=== PATIENT | female | born 1985 | race Caucasian/White ===

== ENCOUNTER 2019-11-18 15:27 | Emergency (ER) | payer BC ==
[2019-11-18] MEDS ORDERED: SODIUM CHLORIDE 0.9% 500 ML 500 ML IV STA (15:35)
[2019-11-18 15:43] VITALS: TEMP 97.5
[2019-11-18 15:46] LABS: Glucose,Whole Blood 128 mg/dL (75-99)
--- NOTE | 2019-11-18 15:49 | ED ---
General Adult HPI - General Chief complaint: Seizure Stated complaint: seizure Time Seen by Provider: 11/18/19 15:28 Source: family, RN notes reviewed Mode of arrival: EMS Limitations: language barrier, altered mental status - History of Present Illness Initial comments: 34-year-old female presenting with suspected new onset seizure. History is limited and isolated to EMS report. Patient recently moved to this area, has had drug issues in the past. She's currently in treatment and on daily methadone. Patient was suspected of ingesting 2 doses of methadone simultaneously. She had a witnessed tonic-clonic seizure at home lasting approximately 2 minutes followed by postictal period. Patient was extremely combative and agitated upon EMS arrival. She required Versed for sedation for transportation. She had been moving all extremities according to EMS. Further history will be obtained from patient's family when available. - Related Data Allergies Allergy/AdvReac Type Severity Reaction Status Date / Time Penicillins Allergy Unknown Verified 11/18/19 15:43 Review of Systems ROS Statement: Those systems with pertinent positive or pertinent negative responses have been documented in the HPI. ROS Other: All systems not noted in ROS Statement are negative. Past Medical History Past Medical History: Hypertension History of Any Multi-Drug Resistant Organisms: None Reported Past Surgical History: Hysterectomy Past Psychological History: Depression, Panic Disorder, PTSD Smoking Status: Current every day smoker Past Alcohol Use History: None Reported Past Drug Use History: Methamphetamine General Exam Limitations: language barrier, altered mental status General appearance: lethargic Head exam: Present: atraumatic, normocephalic Eye exam: Present: PERRL (Pupils are 6 mm bilaterally and reactive). Absent: nystagmus ENT exam: Present: mucous membranes dry Neck exam: Present: normal inspection. Absent: tenderness, meningismus Respiratory exam: Present: normal lung sounds bilaterally. Absent: respiratory distress Cardiovascular Exam: Present: regular rate, normal rhythm GI/Abdominal exam: Present: soft. Absent: distended, tenderness, guarding, rebound Extremities exam: Present: normal capillary refill Neurological exam: Present: motor sensory deficit (Patient moving all extremities symmetrically, localizes to pain.) Skin exam: Present: warm, dry, intact. Absent: cyanosis, diaphoretic Course Vital Signs 11/18/19 11/18/19 15:36 16:46 Temperature 97.5 F L Pulse Rate 99 94 Respiratory 18 16 Rate Blood Pressure 134/101 121/85 O2 Sat by Pulse 90 L 99 Oximetry - Reevaluation(s) Reevaluation #1: 11/18/19 17:07 Patient is responsive to verbal stimulus, she has stable vitals, she is maintaining her airway. EKG Findings - EKG Comments: EKG Findings:: EKG: Sinus tachycardia, rightward axis, rate of 106, IN interval 176, QRS duration 84, QTC 464 Medical Decision Making - Medical Decision Making 34 yo female with new-onset seizure. Patient has history of polysubstance ab use, currently on methadone and in rehab. She had 2 episodes of tonic-clonic seizure which was witnessed followed by postictal period. She received Versed by EMS and additional doses of Ativan in the emergency department. Head CT was performed this is negative for intracranial hemorrhage or mass effect. She has a normal CBC. She had a mild transaminitis, and lactic acidosis of 3.6 consistent with seizure. She receives IV hydration, she is initiated on Keppra. She will require observation for evaluation of neuro status after prolonged postictal period. She will require neurology consultation, likely EEG. This institution does not have neurology coverage at this time, she will be [facility]ferred to [facility] for [facility] evaluation, she has been accepted by the ER physician Dr. Woods. - Lab Data Result diagrams: 11/18/19 15:40 11/18/19 15:40 Lab Results 11/18/19 11/18/19 11/18/19 Range/Units 15:40 15:40 15:40 WBC 5.9 (3.8-10.6) k/uL RBC 3.58 L (3.80-5.40) m/uL Hgb 11.6 (11.4-16.0) gm/dL Hct 34.1 (34.0-46.0) % MCV 95.4 (80.0-100.0) fL MCH 32.4 (25.0-35.0) pg MCHC 34.0 (31.0-37.0) g/dL RDW 14.0 (11.5-15.5) % Plt Count 165 (150-450) k/uL Sodium 139 (137-145) mmol/L Potassium 3.7 (3.5-5.1) mmol/L Chloride 105 (98-107) mmol/L Carbon Dioxide 25 (22-30) mmol/L Anion Gap 9 mmol/L BUN 12 (7-17) mg/dL Creatinine 0.80 (0.52-1.04) mg/dL Est GFR (CKD-EPI)AfAm >90 (>60 ml/min/1.73 sqM) Est GFR (CKD-EPI)NonAf >90 (>60 ml/min/1.73 sqM) Glucose 115 H (74-99) mg/dL POC Glucose (mg/dL) (75-99) mg/dL POC Glu Vocational Placement Specialist ID Plasma Lactic Acid [place] 3.6 H* (0.7-2.0) mmol/L Calcium 9.3 (8.4-10.2) mg/dL Magnesium 2.0 (1.6-2.3) mg/dL Total Bilirubin 0.8 (0.2-1.3) mg/dL AST 62 H (14-36) U/L ALT 65 H (4-34) U/L Alkaline Phosphatase 112 (38-126) U/L Total Protein 7.3 (6.3-8.2) g/dL Albumin 4.0 (3.5-5.0) g/dL Urine Color Urine Appearance (Clear) Urine pH (5.0-8.0) Ur Specific [place] (1.001-1.035) Urine Protein (Negative) Urine Glucose (UA) (Negative) Urine Ketones (Negative) Urine Blood (Negative) Urine Nitrite (Negative) Urine Bilirubin (Negative) Urine Urobilinogen (<2.0) mg/dL Ur Leukocyte Esterase (Negative) Urine HCG, Qual (Not Detectd) Salicylates <1.0 mg/dL Urine Opiates Screen (NotDetected) Ur Oxycodone Screen (NotDetected) Urine Methadone Screen (NotDetected) Ur Propoxyphene Screen (NotDetected) Acetaminophen <10.0 ug/mL Ur Barbiturates Screen (NotDetected) U Tricyclic Antidepress (NotDetected) Ur Phencyclidine Scrn (NotDetected) Ur Amphetamines Screen (NotDetected) U Methamphetamines Scrn (NotDetected) U Benzodiazepines Scrn (NotDetected) Urine Cocaine Screen (NotDetected) U Marijuana (THC) Screen (NotDetected) Serum Alcohol <10 mg/dL 11/18/19 11/18/19 11/18/19 Range/Units 15:45 16:10 16:10 WBC (3.8-10.6) k/uL RBC (3.80-5.40) m/uL Hgb (11.4-16.0) gm/dL Hct (34.0-46.0) % MCV (80.0-100.0) fL MCH (25.0-35.0) pg MCHC (31.0-37.0) g/dL RDW (11.5-15.5) % Plt Count (150-450) k/uL Sodium (137-145) mmol/L Potassium (3.5-5.1) mmol/L Chloride (98-107) mmol/L Carbon Dioxide (22-30) mmol/L Anion Gap mmol/L BUN (7-17) mg/dL Creatinine (0.52-1.04) mg/dL Est GFR (CKD-EPI)AfAm (>60 ml/min/1.73 sqM) Est GFR (CKD-EPI)NonAf (>60 ml/min/1.73 sqM) Glucose (74-99) mg/dL POC Glucose (mg/dL) 128 H (75-99) mg/dL POC Glu Vocational Placement Specialist Jane Romo Plasma Lactic Acid [place] (0.7-2.0) mmol/L Calcium (8.4-10.2) mg/dL Magnesium (1.6-2.3) mg/dL Total Bilirubin (0.2-1.3) mg/dL AST (14-36) U/L ALT (4-34) U/L Alkaline Phosphatase (38-126) U/L Total Protein (6.3-8.2) g/dL Albumin (3.5-5.0) g/dL Urine Color Yellow Urine Appearance Clear (Clear) Urine pH 5.5 (5.0-8.0) Ur Specific [place] 1.016 (1.001-1.035) Urine Protein Negative (Negative) Urine Glucose (UA) Negative (Negative) Urine Ketones Trace H (Negative) Urine Blood Negative (Negative) Urine Nitrite Negative (Negative) Urine Bilirubin Negative (Negative) Urine Urobilinogen <2.0 (<2.0) mg/dL Ur Leukocyte Esterase Negative (Negative) Urine HCG, Qual Not Detected (Not Detectd) Salicylates mg/dL Urine Opiates Screen Not Detected (NotDetected) Ur Oxycodone Screen Not Detected (NotDetected) Urine Methadone Screen Detected H (NotDetected) Ur Propoxyphene Screen Not Detected (NotDetected) Acetaminophen ug/mL Ur Barbiturates Screen Not Detected (NotDetected) U Tricyclic Antidepress Not Detected (NotDetected) Ur Phencyclidine Scrn Not Detected (NotDetected) Ur Amphetamines Screen Not Detected (NotDetected) U Methamphetamines Scrn Not Detected (NotDetected) U Benzodiazepines Scrn Not Detected (NotDetected) Urine Cocaine Screen Not Detected (NotDetected) U Marijuana (THC) Screen Not Detected (NotDetected) Serum Alcohol mg/dL Critical Care Time Critical Care Time: Yes Total Critical Care Time: 35 Disposition Clinical Impression: New onset seizure Disposition: OTHER INSTITUTION NOT DEFINED Condition: Stable Is patient prescribed a controlled substance at d/c from ED?: No Referrals: None,Stated [Primary Care Provider] - 1-2 days Time of Disposition: 17:07 - Out of Hospital Transfer - Req. Specs Out of Hospital Transfer - Requested Specifics: Other Emergency Center (Transferred to [facility])
[2019-11-18 15:56] LABS: HCT 34.1 % (34.0-46.0); HGB 11.6 gm/dL (11.4-16.0); MCH 32.4 pg (25.0-35.0); MCV 95.4 fL (80.0-100.0); Platelet Count 165 k/uL (150-450); RBC 3.58 m/uL (3.80-5.40); WBC 5.9 k/uL (3.8-10.6)
[2019-11-18 16:08] LABS: ALT 65 U/L (4-34); AST 62 U/L (14-36); Acetaminophen <10.0 ug/mL; African American GFR (CKD) >90 (>60 ml/min/1.73 sqM); Alcohol <10 mg/dL; Alkaline Phosphatase 112 U/L (38-126); Anion Gap 9 mmol/L; Blood Urea Nitrogen 12 mg/dL (7-17); Calcium 9.3 mg/dL (8.4-10.2); Carbon Dioxide 25 mmol/L (22-30); Chloride 105 mmol/L (98-107); Glucose 115 mg/dL (74-99); Non-African American GFR(CKD) >90 (>60 ml/min/1.73 sqM); Potassium 3.7 mmol/L (3.5-5.1); Salicylate <1.0 mg/dL; Sodium 139 mmol/L (137-145); Total Bilirubin 0.8 mg/dL (0.2-1.3); Total Protein 7.3 g/dL (6.3-8.2)
[2019-11-18] MEDS ORDERED: LORazepam 2 MG/ML INJ IV STA ×2 (16:10→16:15)
[2019-11-18 16:21] LABS: Appearance,Urine Clear (Clear); Bilirubin,Urine Negative (Negative); Blood,Urine Negative (Negative); Color,Urine Yellow; Glucose,Urine (UA) Negative (Negative); Ketones,Urine Trace (Negative); Leukocyte Esterase,Urine Negative (Negative); Nitrite,Urine Negative (Negative); PH, Urine 5.5 (5.0-8.0); Protein,Urine Negative (Negative); Specific Gravity,Urine 1.016 (1.001-1.035); Urobilinogen,Urine <2.0 mg/dL (<2.0)
[2019-11-18 16:30] LABS: Amphetamine Screen,Urine Not Detected (NotDetected); Barbiturate Screen,Urine Not Detected (NotDetected); Benzodiazepines Screen,Urine Not Detected (NotDetected); Cocaine Screen,Urine Not Detected (NotDetected); Methadone Screen, Urine Detected (NotDetected); Opiate Screen,Urine Not Detected (NotDetected); Oxycodone Screen, Urine Not Detected (NotDetected); Phencyclidine Screen,Urine Not Detected (NotDetected); Tricyclic Antidepressant,Urine Not Detected (NotDetected); Urn Cannabinoid Scrn Not Detected (NotDetected)
[2019-11-18] MEDS ORDERED: SODIUM CHLORIDE 0.9% 1,000 ML IV SCH (16:30)
--- NOTE | 2019-11-18 16:31 | CT ---
EXAMINATION TYPE: CT brain wo con DATE OF EXAM: 11/18/2019 COMPARISON: None HISTORY: Seizure activity, possible overdose, combative, altered mental status. CT DLP: 1217.4 mGycm. Automated Exposure Control for Dose Reduction was Utilized. TECHNIQUE: CT scan of the head is performed without contrast. FINDINGS: There is no acute intracranial hemorrhage, mass effect, or midline shift identified. The ventricles and sulci are within normal limits in size. The globes are intact and the visualized sin uses are clear. IMPRESSION: No acute intracranial hemorrhage, mass effect, or midline shift is seen.
[2019-11-18 16:59] LABS: Band Neutrophils % 3 %; Eosinophils # (M) 0.41 k/uL (0-0.7); Lymphocytes # (M) 2.89 k/uL (1.0-4.8); Monocytes # (M) 0.41 k/uL (0-1.0); Neutrophils % (M) 34 %; Nucleated Red Blood Cells 0 /100 WBC (0-0); Total Cells Counted 100
[2019-11-18 17:00] LABS: Reactive Lymphocytes Present
[2019-11-18] MEDS ORDERED: levETIRAcetam IV 1,000 MG in SALINE 1 100ML.BAG IVPB STA (17:00)
[2019-11-18 18:07] VITALS: BP 128/91; PULSE 82; RESP 18
== END 2019-11-18 17:55 | disposition other institution (70) ==
LOC: EC 15:27
DX: R56.9 Unspecified convulsions (principal); F17.200 Nicotine dependence, unspecified, uncomplicated; Z88.0 Allergy status to penicillin
CPT/HCPCS: 36415; 93005; 80053; 83605; 83735; 85025; 81003; 81025; 80306; 83520; 80329; 80320; 70450; 99291; 96365; 96375; 96361 ×2; J2060; J1953

== ENCOUNTER 2020-12-23 05:22 | Emergency (ER) | payer BC, OTHER ==
[2020-12-23 05:34] VITALS: RESP 18
[2020-12-23] MEDS ORDERED: ONDANSETRON 4 MG/2 ML VIAL IVP STA ×2 (05:51→08:27)
[2020-12-23] MEDS ORDERED: MORPHINE SULFATE 4 MG/ML SYRINGE IV STA (05:51)
[2020-12-23 06:01] LABS: Appearance,Urine Turbid (Clear); Bacteria,Urine Many /hpf; Bilirubin,Urine Negative (Negative); Blood,Urine Large (Negative); Color,Urine Light Red; Glucose,Urine (UA) Negative (Negative); Ketones,Urine Negative (Negative); Leukocyte Esterase,Urine Large (Negative); Mucus,Urine Many /hpf; Nitrite,Urine Positive (Negative); Protein,Urine 2+ (Negative); RBC,Urine >182 /hpf (0-5); Specific Gravity,Urine 1.026 (1.001-1.035); Squamous Epithelial Cell,Urine 43 /hpf (0-4); Urobilinogen,Urine <2.0 mg/dL (<2.0); WBC,Urine >182 /hpf (0-5)
[2020-12-23] MEDS ORDERED: KETOROLAC 15 MG/ML 1 ML VIAL IVP STA (06:25)
--- NOTE | 2020-12-23 06:27 | ED ---
General Adult HPI - General Chief complaint: Abdominal Pain Stated complaint: Kidney Stone Time Seen by Provider: 12/23/20 06:20 Source: patient, RN notes reviewed Mode of arrival: wheelchair Limitations: no limitations - History of Present Illness Initial comments: Patient is a 35-year-old female significant past medical history for kidney stones, presented to the emergency room today with chief complaint of left sided flank pain that started yesterday. Doesn't do some nausea and vomiting and some symptoms of dysuria. She states the symptoms are consistent with kidney stones that she's had in the past. Patient denies any other complaints or symptoms currently at this time. Patient denies any recent fever, chills, shortness of breath, chest pain, headaches or visual changes, or any other complaints. - Related Data Home Medications Medication Instructions Recorded Confirmed Gabapentin 300 mg PO TID 12/23/20 12/23/20 Metoprolol(Unknown Dose) 3 tab PO DAILY 12/23/20 12/23/20 Previous Rx's Medication Instructions Recorded Cephalexin [Keflex] 500 mg PO QID 10 Days cap 12/23/20 HYDROcodone/APAP 5-325MG [[place] 5] 1 each PO Q6HR PRN #12 tab 12/23/20 Ibuprofen [Motrin] 800 mg PO Q6HR #30 tab 12/23/20 Ondansetron Odt [Zofran ODT] 4 mg PO Q8HR PRN #20 tab 12/23/20 Allergies Allergy/AdvReac Type Severity Reaction Status Date / Time Penicillins Allergy Unknown Verified 12/23/20 05:30 Review of Systems ROS Statement: Those systems with pertinent positive or pertinent negative responses have been documented in the HPI. ROS Other: All systems not noted in ROS Statement are negative. Past Medical History Past Medical History: Hypertension Additional Past Medical History / Comment(s): kidney stone. ( 1 seizure in the past) History of Any Multi-Drug Resistant Organisms: None Reported Past Surgical History: Hysterectomy, Orthopedic Surgery Additional Past Surgical History / Comment(s): right shoulder, kindey stents lithotripsy Past Psychological History: Depression, Panic Disorder, PTSD Smoking Status: Current every day smoker Past Alcohol Use History: None Reported Past Drug Use History: None Reported, Methamphetamine General Exam - General Exam Comments Initial Comments: General: The patient is awake and alert, mild distress. Eye: There is normal conjunctiva bilaterally. Ears, nose, mouth and throat: There are moist mucous membranes and no oral lesions. Neck: The neck is supple, there is no tenderness or JVD. Cardiovascular: There is a regular rate and rhythm. No murmur, rub or gallop is appreciated. Respiratory: Lungs are clear to auscultation, respirations are non-labored, breath sounds are equal. No wheezes, stridor, rales, or rhonchi. Gastrointestinal: Admits soft on palpation. This has mild tenderness in left flank area. No rebound or guarding. Musculoskeletal: Normal ROM, no tenderness. Neurological: A&O x 3. CN II-XII intact, There are no obvious motor or sensory deficits. Coordination appears grossly intact. Speech is normal. Skin: Skin is warm and dry and no rashes or lesions are noted. Psychiatric: Cooperative, appropriate mood & affect, normal judgment. Limitations: no limitations Course Vital Signs 12/23/20 12/23/20 05:30 07:16 Temperature 98.2 F 98.8 F Pulse Rate 108 H 82 Respiratory 18 18 Rate Blood Pressure 157/108 149/104 O2 Sat by Pulse 100 100 Oximetry Medical Decision Making - Medical Decision Making Patient's labs were reviewed no elevated white count.. Emergency room. Urinalysis showed greater than 182 white cells and red. There was positive nitrate. Patient was given 2 g Rocephin here in the emergency room. Patient's CT and pelvis shows a 4 mm stone in the left UPJ. There is some inflammation seen around the bladder. Was discussed with patient about admission to the hospital. She has declined. Patient states that she would rather be treated outpatient. Patient will be continued on pain medication, nausea medication, and antibiotic. She is advised return to emergency room if any symptoms increase or worsen or for any other concerns. - Lab Data Result diagrams: 12/23/20 06:14 12/23/20 06:14 Lab Results 12/23/20 12/23/20 12/23/20 Range/Units 05:50 05:50 06:14 WBC 9.7 (3.8-10.6) k/uL RBC 4.52 (3.80-5.40) m/uL Hgb 15.2 (11.4-16.0) gm/dL Hct 42.6 (34.0-46.0) % MCV 94.3 (80.0-100.0) fL MCH 33.7 (25.0-35.0) pg MCHC 35.8 (31.0-37.0) g/dL RDW 12.6 (11.5-15.5) % Plt Count 278 (150-450) k/uL MPV 8.3 Neutrophils % 68 % Lymphocytes % 25 % Monocytes % 5 % Eosinophils % 2 % Basophils % 0 % Neutrophils # 6.6 (1.3-7.7) k/uL Lymphocytes # 2.4 (1.0-4.8) k/uL Monocytes # 0.5 (0-1.0) k/uL Eosinophils # 0.2 (0-0.7) k/uL Basophils # 0.0 (0-0.2) k/uL Sodium (137-145) mmol/L Potassium (3.5-5.1) mmol/L Chloride (98-107) mmol/L Carbon Dioxide (22-30) mmol/L Anion Gap mmol/L BUN (7-17) mg/dL Creatinine (0.52-1.04) mg/dL Est GFR (CKD-EPI)AfAm (>60 ml/min/1.73 sqM) Est GFR (CKD-EPI)NonAf (>60 ml/min/1.73 sqM) Glucose (74-99) mg/dL Calcium (8.4-10.2) mg/dL Total Bilirubin (0.2-1.3) mg/dL AST (14-36) U/L ALT (4-34) U/L Alkaline Phosphatase (38-126) U/L Total Protein (6.3-8.2) g/dL Albumin (3.5-5.0) g/dL Amylase (30-110) U/L Lipase (23-300) U/L Urine Color Light Red Urine Appearance Turbid H (Clear) Urine pH 6.0 (5.0-8.0) Ur Specific [place] 1.026 (1.001-1.035) Urine Protein 2+ H (Negative) Urine Glucose (UA) Negative (Negative) Urine Ketones Negative (Negative) Urine Blood Large H (Negative) Urine Nitrite Positive H (Negative) Urine Bilirubin Negative (Negative) Urine Urobilinogen <2.0 (<2.0) mg/dL Ur Leukocyte Esterase Large H (Negative) Urine RBC >182 H (0-5) /hpf Urine WBC >182 H (0-5) /hpf Ur Squamous Epith Cells 43 H (0-4) /hpf Urine Bacteria Many H (None) /hpf Urine Mucus Many H (None) /hpf Urine HCG, Qual Not Detected (Not Detectd) 12/23/20 Range/Units 06:14 WBC (3.8-10.6) k/uL RBC (3.80-5.40) m/uL Hgb (11.4-16.0) gm/dL Hct (34.0-46.0) % MCV (80.0-100.0) fL MCH (25.0-35.0) pg MCHC (31.0-37.0) g/dL RDW (11.5-15.5) % Plt Count (150-450) k/uL MPV Neutrophils % % Lymphocytes % % Monocytes % % Eosinophils % % Basophils % % Neutrophils # (1.3-7.7) k/uL Lymphocytes # (1.0-4.8) k/uL Monocytes # (0-1.0) k/uL Eosinophils # (0-0.7) k/uL Basophils # (0-0.2) k/uL Sodium 137 (137-145) mmol/L Potassium 3.9 (3.5-5.1) mmol/L Chloride 102 (98-107) mmol/L Carbon Dioxide 23 (22-30) mmol/L Anion Gap 12 mmol/L BUN 16 (7-17) mg/dL Creatinine 0.89 (0.52-1.04) mg/dL Est GFR (CKD-EPI)AfAm >90 (>60 ml/min/1.73 sqM) Est GFR (CKD-EPI)NonAf 83 (>60 ml/min/1.73 sqM) Glucose 146 H (74-99) mg/dL Calcium 10.3 H (8.4-10.2) mg/dL Total Bilirubin 0.9 (0.2-1.3) mg/dL AST 33 (14-36) U/L ALT 41 H (4-34) U/L Alkaline Phosphatase 90 (38-126) U/L Total Protein 8.3 H (6.3-8.2) g/dL Albumin 4.9 (3.5-5.0) g/dL Amylase 36 (30-110) U/L Lipase 44 (23-300) U/L Urine Color Urine Appearance (Clear) Urine pH (5.0-8.0) Ur Specific [place] (1.001-1.035) Urine Protein (Negative) Urine Glucose (UA) (Negative) Urine Ketones (Negative) Urine Blood (Negative) Urine Nitrite (Negative) Urine Bilirubin (Negative) Urine Urobilinogen (<2.0) mg/dL Ur Leukocyte Esterase (Negative) Urine RBC (0-5) /hpf Urine WBC (0-5) /hpf Ur Squamous Epith Cells (0-4) /hpf Urine Bacteria (None) /hpf Urine Mucus (None) /hpf Urine HCG, Qual (Not Detectd) Disposition Clinical Impression: Kidney stone on left side, UTI (urinary tract infection) Disposition: HOME SELF-CARE Condition: Stable Instructions (If sedation given, give patient instructions): Kidney Stones (ED) Additional Instructions: Please use medication as discussed. Please follow-up with family doctor/urology in the next 2 days. Please return to emergency room if the symptoms increase or worsen or for any other concerns. Prescriptions: Cephalexin [Keflex] 500 mg PO QID 10 Days cap Ibuprofen [Motrin] 800 mg PO Q6HR #30 tab HYDROcodone/APAP 5-325MG [[place] 5] 1 each PO Q6HR PRN #12 tab PRN Reason: Pain Ondansetron Odt [Zofran ODT] 4 mg PO Q8HR PRN #20 tab PRN Reason: Nausea Is patient prescribed a controlled substance at d/c from ED?: Yes If prescribed controlled substance>3 days was MAPS reviewed?: Prescribed <3 Days Referrals: None,Stated [Primary Care Provider] - 1-2 days Jose De Jesus Hargrove MD [STAFF PHYSICIAN] - 1-2 days Time of Disposition: 08:24
[2020-12-23 06:28] LABS: Basophils % (A) 0 %; Eosinophils # (A) 0.2 k/uL (0-0.7); Eosinophils % (A) 2 %; HCT 42.6 % (34.0-46.0); HGB 15.2 gm/dL (11.4-16.0); Lymphocytes # (A) 2.4 k/uL (1.0-4.8); Lymphocytes % (A) 25 %; MCH 33.7 pg (25.0-35.0); MCHC 35.8 g/dL (31.0-37.0); MCV 94.3 fL (80.0-100.0); Mean Platelet Volume 8.3; Monocytes # (A) 0.5 k/uL (0-1.0); Monocytes % (A) 5 %; Neutrophils # (A) 6.6 k/uL (1.3-7.7); Neutrophils % (A) 68 %; Platelet Count 278 k/uL (150-450); RBC 4.52 m/uL (3.80-5.40); RDW 12.6 % (11.5-15.5); WBC 9.7 k/uL (3.8-10.6)
[2020-12-23 06:39] LABS: ALT 41 U/L (4-34); AST 33 U/L (14-36); African American GFR (CKD) >90 (>60 ml/min/1.73 sqM); Albumin 4.9 g/dL (3.5-5.0); Alkaline Phosphatase 90 U/L (38-126); Amylase 36 U/L (30-110); Anion Gap 12 mmol/L; Blood Urea Nitrogen 16 mg/dL (7-17); Calcium 10.3 mg/dL (8.4-10.2); Carbon Dioxide 23 mmol/L (22-30); Chloride 102 mmol/L (98-107); Glucose 146 mg/dL (74-99); Lipase 44 U/L (23-300); Non-African American GFR(CKD) 83 (>60 ml/min/1.73 sqM); Potassium 3.9 mmol/L (3.5-5.1); Sodium 137 mmol/L (137-145); Total Bilirubin 0.9 mg/dL (0.2-1.3); Total Protein 8.3 g/dL (6.3-8.2)
[2020-12-23] MEDS ORDERED: HYDROmorphone 0.5 MG/0.5 ML SYRINGE IVP STA (07:00)
[2020-12-23 07:18] VITALS: TEMP 98.8
--- NOTE | 2020-12-23 07:56 | XR ---
EXAMINATION TYPE: XR KUB DATE OF EXAM: 12/23/2020 COMPARISON: None INDICATION: Left flank pain and gross hematuria TECHNIQUE: Single view abdomen upright view FINDINGS: There is a normal bowel gas pattern. No suspicious air-fluid levels or differential air-fluid levels are present. No free air is present. Psoas margins are normal. No organomegaly is present. No suspicious calcifications are evident. IMPRESSION: 1. Unremarkable Abdomen
--- NOTE | 2020-12-23 08:09 | CT ---
EXAMINATION TYPE: CT abdomen pelvis wo con DATE OF EXAM: 12/23/2020 COMPARISON: None HISTORY: 35-year-old female with abdominal pain CT DLP: 585.3 mGycm. Automated exposure control for dose reduction was used. TECHNIQUE: Contiguous axial scanning of the abdomen and pelvis without IV contrast. Coronal and sagit becky reconstructions performed. FINDINGS: Heart normal size without pericardial effusion. Some motion at the lung bases without pleural effusio n. Slightly low attenuation of the hepatic parenchyma. Liver mildly enlarged at 18.6 cm. Noncontrast appearance of the gallbladder, right adrenal gland, spleen, and pancreas shows no gross a bnormality. Mild diffuse thickening of the left adrenal gland without discrete nodularity. A few scattered punctate 1 mm nonobstructive calculi in the right kidney. Nonobstructive 5 mm left renal calculus. There is a 4 mm calculus in the proximal left ureter just be yond the UPJ with mild left-sided pelvocaliectasis. No dilated small bowel, free fluid, or free air. Scattered nonenlarged mesenteric lymph nodes are not ed. Normal appendix. No significant stool burden. Mild to moderate circumferential bladder wall thickening. Multiple pelvic fluid was. No abnormal flui d collection pelvis or pelvic lymphadenopathy. Bones: No osseous destructive process. IMPRESSION: 1. A 4 mm stone in the proximal left ureter just beyond the UPJ with mild, early obstructive uropath y. 2. Additional 5 mm nonobstructive left renal calculus. Scattered punctate 1 mm nonobstructive right renal calculi. 3. Mild hepatomegaly (18.6 cm) with mild hepatic steatosis. 4. Mild to moderate circumferential bladder wall thickening may reflect chronic bladder wall hypertr ophy. Correlate to exclude cystitis.
[2020-12-23] MEDS ORDERED: HYDROmorphone 0.5 MG/0.5 ML SYRINGE IM STA (08:27)
[2020-12-23 08:29] VITALS: BP 150/92; PULSE 92
== END 2020-12-23 08:42 | disposition home or self-care (01) ==
LOC: EC 05:22
DX: N39.0 Urinary tract infection, site not specified (principal); N20.0 Calculus of kidney; I10 Essential (primary) hypertension; F17.200 Nicotine dependence, unspecified, uncomplicated; Z79.899 Other long term (current) drug therapy; Z88.0 Allergy status to penicillin; Z90.710 Acquired absence of both cervix and uterus; Z87.442 Personal history of urinary calculi
CPT/HCPCS: 36415; 80053; 82150; 83690; 85025; 81001; 81025; 74018; 74176; 99284; 96365; 96375 ×4; 96376; 96372; J2270; J2405; J0696; J1885; J1170